=== PATIENT | female | born 1995 | race African-American/Black ===

== ENCOUNTER 2019-01-10 13:48 | Emergency (ER) | payer MEDICAID ==
[~2019-01-10] VITALS: Ht 157.5 cm; Wt 82.0 kg
[2019-01-10 18:19] LABS: BASOPHILS % 0.4 % (0.0-2.0); EOSINOPHILS % 1.1 % (0.0-5.0); HEMATOCRIT. 37.8 % (36.0-48.0); HEMOGLOBIN. 12.9 g/dL (12.0-16.0); LYMPHOCYTES % 30.3 % (20.0-50.0); MEAN CORPUSCULAR HEMOGLOBIN 29.6 pg (28.0-32.0); MEAN CORPUSCULAR VOLUME 86.6 fL (81.0-99.0); MEAN PLATELET VOLUME 9.4 fl (7.4-10.4); MONOCYTES % 6.7 % (2.0-8.0); NEUTROPHILS % 61.5 % (40.0-76.0); PLATELET 227 x1000/uL (130-400); RED BLOOD CELL COUNT 4.36 mill/uL (4.2-5.4)
[2019-01-10 18:26] LABS: CHLORIDE 107 mEq/L (98-107)
[2019-01-10 18:37] LABS: B-HCG QUANTITATIVE < 1 mIU/mL (<3)
[2019-01-10 19:13] LABS: CLARITY URINE TURBID (CLEAR); COLOR URINE RED (YELLOW); KETONES URINE NEGATIVE (NEGATIVE); LEUKOCYTE ESTERASE URINE 1+ (NEGATIVE); NITRITE URINE NEGATIVE (NEGATIVE); OCCULT BLOOD URINE 3+ (NEGATIVE); PROTEIN URINE 1+ (NEGATIVE); SPECIFIC GRAVITY URINE 1.023 (1.005-1.030); UROBILINOGEN URINE 0.2 E.U./dL (0.2-1.0)
[2019-01-10 19:57] VITALS: BP 105/66
[2019-01-10] MEDS ORDERED: KETOROLAC 60MG/2ML VIAL IM ONE (20:00)
== END 2019-01-10 20:09 | disposition home or self-care (01) ==
LOC: ER 13:48
DX: N30.00 Acute cystitis without hematuria (principal); N93.8 Other specified abnormal uterine and vaginal bleeding; F12.10 Cannabis abuse, uncomplicated; F17.200 Nicotine dependence, unspecified, uncomplicated; Z91.040 Latex allergy status
CPT/HCPCS: 36415; 80053; 81003; 81025; 84702; 85025; 86850; 86900; 86901; 96372; 99283; J1885

== ENCOUNTER 2019-03-12 12:12 | Emergency (ER) | payer MEDICAID ==
[~2019-03-12] VITALS: Ht 157.5 cm; Wt 76.0 kg
[2019-03-12] MEDS ORDERED: IBUPROFEN 600MG TABLET PO ONE (13:00)
[2019-03-12] MEDS ORDERED: KETOROLAC 60MG/2ML VIAL IM ONE (14:30)
[2019-03-12 15:00] VITALS: BP 118/70
== END 2019-03-12 15:01 | disposition home or self-care (01) ==
LOC: ER 12:21
DX: S80.211A Abrasion, right knee, initial encounter (principal); M25.572 Pain in left ankle and joints of left foot; M25.562 Pain in left knee; Z91.040 Latex allergy status; X58.XXXA Exposure to other specified factors, initial encounter; Y93.89 Activity, other specified; Y92.89 Other specified places as the place of occurrence of the external cause; Y99.8 Other external cause status
CPT/HCPCS: 73610; 73630; 81025; 99283

== ENCOUNTER 2024-01-18 11:38 | Emergency (ER) | payer MEDICAID ==
[~2024-01-18] VITALS: Ht 157.5 cm; Wt 82.0 kg
[2024-01-18 11:55] VITALS: O2SAT 100
[2024-01-18 13:17] VITALS: TEMP 98.3
[2024-01-18] MEDS: ACETAMINOPHEN 325MG TABLET PO ONE (13:17)
[2024-01-18 14:26] LABS: CLARITY URINE CLEAR (CLEAR); COLOR URINE YELLOW (YELLOW); GLUCOSE URINE NEGATIVE (NEGATIVE); KETONES URINE 1+ (NEGATIVE); LEUKOCYTE ESTERASE URINE 1+ (NEGATIVE); NITRITE URINE NEGATIVE (NEGATIVE); OCCULT BLOOD URINE NEGATIVE (NEGATIVE); PROTEIN URINE NEGATIVE (NEGATIVE); SPECIFIC GRAVITY URINE 1.023 (1.005-1.030); UROBILINOGEN URINE 0.2 E.U./dL (0.2-1.0)
[2024-01-18 14:55] LABS: MUCUS URINE 3+ /lpf (< = 2+); SQUAMOUS EPITHELIAL CELL URINE 2+ /lpf (RARE/1+)
[2024-01-18 15:00] LABS: BACTERIA URINE 2+; RBC URINE 0-2 /hpf (0-2)
[2024-01-18] MEDS ORDERED: CEPH500C2 MT (15:12)
[2024-01-18 15:53] VITALS: BP 120/80; PULSE 70; RESP 15; O2SAT 99
== END 2024-01-18 15:54 | disposition home or self-care (01) ==
LOC: ER 11:49
DX: N39.0 Urinary tract infection, site not specified (principal); Z91.040 Latex allergy status; Z98.890 Other specified postprocedural states
CPT/HCPCS: 81003; 81025; 99283